=== PATIENT | male | born 1970 | race Caucasian/White ===

== ENCOUNTER → 2019-12-01 | Day surgery (SDC) | payer OTHER ==
[~2019-12-01] MED LIST: DICLOFENAC SODI75 MG PO; FENTANYL CITRATE/PF 100MCG/2 ML INJ ONE; HYDROCODONE PO; MIDAZOLAM HCL 2 MG/2 ML VIAL ONE; OR PHACO EYE KIT ONE; PREOP PHACO EYE KIT ONE
[2019-12-01 14:42] VITALS: BP 87/65
--- NOTE | 2019-12-01 19:25 | Operative Report ---
DATE OF PROCEDURE: 12/01/2019 SURGEON: Zeeshan Solano MD PREOPERATIVE DIAGNOSIS: Dense white cataract, right eye. POSTOPERATIVE DIAGNOSIS: Dense white cataract, right eye. PROCEDURE: Complicated phacoemulsification with posterior chamber intraocular lens. ANESTHESIA: MAC. COMPLICATIONS: None. LENS: Jhonny SN60WF 21.5 diopter lens. DESCRIPTION OF PROCEDURE: The patient was taken to the operating room. The patient had tetracaine 0.5% drops placed in the eye. The patient's eye was prepped and draped in the usual sterile ophthalmic way. A lid speculum was placed in the eye. A side-port incision was made. A 0.2 mL of 1% lidocaine preservative-free was injected in the anterior chamber. An air bubble was placed in the anterior chamber and trypan blue dye was used to stain the capsule. BSS solution was used to irrigate this out. Viscoelastic was placed in the anterior chamber and a keratome was used to make a temporal clear corneal incision. A cystotome was used along the Utrata forceps to create an anterior capsulorrhexis. The anterior capsule was very dense and at one point after about 80% of rhexis was then able to continue to tear the anterior capsule, I had to convert to a [employer] technique. Hydrodissection was then performed. The phacoemulsification probe was placed in the eye. The nucleus was phacoemulsified using the divide and conquer technique. Irrigation/aspiration handpiece was used to remove any residual cortical material. Viscoelastic was placed in the capsular bag. An Jhonny SN60WF lens placed in the bag without any complications. Irrigation/aspiration handpiece was used to remove any residual viscoelastic material from the eye. Miostat was injected in the anterior chamber and the wound was checked to make sure there was no evidence of leakage. Two drops of Vigamox were placed over the eye. Once this done, the patient had Maxitrol ointment, patch and Norton shield were placed in the eye. The patient tolerated the procedure well, was taken to recovery room in good condition. The patient will be seen by me tomorrow . Zeeshan Solano MD SES/MODL /[id number]
== END | disposition home or self-care (01) ==
LOC: OR 11:23 → EDSEX 18:00
PROVIDERS: ATTEND Ophthalmology
DX: H25.11 Age-related nuclear cataract, right eye (principal); M51.26 Other intervertebral disc displacement, lumbar region; H91.90 Unspecified hearing loss, unspecified ear; Z01.812 Encounter for preprocedural laboratory examination; Z11.59 Encounter for screening for other viral diseases; Z87.891 Personal history of nicotine dependence
CPT/HCPCS: 66982; J2250; J3010; U0002; V2632

== ENCOUNTER → 2019-12-15 | Day surgery (SDC) | payer OTHER ==
[~2019-12-15] VITALS: Ht 175.3 cm; Wt 67.1 kg
[2019-12-15 14:30] VITALS: BP 101/68
== END | disposition home or self-care (01) ==
LOC: OR 10:50
PROVIDERS: ATTEND Ophthalmology
DX: H25.12 Age-related nuclear cataract, left eye (principal); M54.9 Dorsalgia, unspecified; Z01.812 Encounter for preprocedural laboratory examination; Z11.59 Encounter for screening for other viral diseases; Z87.891 Personal history of nicotine dependence
CPT/HCPCS: 66984; J2250; J3010; U0002; V2632

== ENCOUNTER 2020-03-07 13:27 | Inpatient (IN) | payer OTHER ==
[~2020-03-07] VITALS: Ht 175.3 cm; Wt 70.8 kg
[~2020-03-07 13:27] MED LIST changes: -FENTANYL CITRATE/PF 100MCG/2 ML INJ ONE; -MIDAZOLAM HCL 2 MG/2 ML VIAL ONE; -OR PHACO EYE KIT ONE; -PREOP PHACO EYE KIT ONE
[2020-03-07 14:31] LABS: BASOPHILS # (AUTO) 0.1 (0.0-0.1); BASOPHILS % 0.5 % (0.0-1.0); EOSINOPHILS % 0.1 % (0.0-6.0); HEMATOCRIT 39.4 % (38.2-49.6); HEMOGLOBIN 13.1 g/dL (14.0-18.0); LYMPHOCYTES # (AUTO) 2.1 (1.0-3.2); LYMPHOCYTES % 21.1 % (18.0-39.1); MEAN CORPUSCULAR HEMOGLOBIN 32.7 pg (28-32); MEAN CORPUSCULAR HGB CONC 33.2 g/dL (31-35); MEAN CORPUSCULAR VOLUME 98.3 fL (81-99); MONOCYTES # (AUTO) 0.8 (0.2-0.8); MONOCYTES % 7.4 % (4.4-11.3); NEUTROPHILS # (AUTO) 7.1 (2.1-6.9); NEUTROPHILS % 70.6 % (38.7-80.0); PLATELET COUNT 253 x10e3/uL (140-360); RED BLOOD COUNT 4.01 x10e6/uL (4.3-5.7); RED CELL DISTRIBUTION WIDTH 11.9 % (11.7-14.4)
[2020-03-07 14:47] LABS: ALANINE AMINOTRANSFERASE 30 IU/L (0-55); ALBUMIN 3.6 g/dL (3.5-5.0); ALKALINE PHOSPHATASE 66 IU/L (40-150); BLOOD UREA NITROGEN 10 mg/dL (7-26); BUN/CREATININE RATIO 12 (6-25); CALCIUM 8.8 mg/dL (8.4-10.2); CARBON DIOXIDE 26 mmol/L (22-29); CHLORIDE 105 mmol/L (98-107); CREATININE, SERUM 0.85 mg/dL (0.72-1.25); EST GLOMERULAR FILTRATION RATE > 60 ML/MIN (60-); GLUCOSE 112 mg/dL (74-118); SODIUM 138 mmol/L (136-145)
[2020-03-07] MEDS ORDERED: HEPARIN SOD (PORCINE) 5,000 UNIT/ML VIAL IV ONE (15:00)
[2020-03-07] MEDS ORDERED: ASPIRIN 81 MG CHEW TAB PO ONE (15:00)
[2020-03-07] MEDS ORDERED: HEPARIN 25,000 UNIT 900 UNIT in DEXTROSE 5% 250ML 250 ML IV SCH (15:00)
[2020-03-07] MEDS ORDERED: MORPHINE SULFATE INJ 2 MG/ML SYR IV PRN (15:15)
[2020-03-07 15:16] LABS: INR 0.92; PROTHROMBIN TIME 12.9 seconds (11.9-14.5)
[2020-03-07] MEDS ORDERED: MORPHINE SULFATE INJ 4 MG/ML INJ 1ML ONE (15:28)
[2020-03-07] MEDS: ONDANSETRON HCL INJ 2MG/ML 2ML 2 MG/ML VIAL IV PRN ×2 (15:28→19:39)
[2020-03-07] MEDS: MORPHINE SULFATE INJ 4 MG/ML INJ 1ML IV PRN ×2 (15:28→19:40)
[2020-03-07] MEDS ORDERED: HEPARIN SOD (PORCINE) 1000 UNIT/ML SDV ONE (15:29)
[2020-03-07] MEDS ORDERED: HEPARIN SOD (PORCINE) 5,000 UNIT/ML VIAL ONE (15:29)
[2020-03-07] MEDS ORDERED: HEPARIN 25,000 UNIT DRIP IV ONE (15:30)
[2020-03-07] MEDS ORDERED: ULTRAM 50MG50 MG (15:54)
[2020-03-07] MEDS ORDERED: HYDROCODON-ACE1 EAC9 (15:54)
[2020-03-07] MEDS ORDERED: GABAPENTIN300 MG (15:54)
[2020-03-07] MEDS ORDERED: TRAMADOL HCL 50 MG TAB PO PRN (16:45)
[2020-03-07 16:46] VITALS: BP 149/99
[2020-03-07 17:00] VITALS: BP 149/99
[2020-03-07] MEDS ORDERED: NON-FORMULARY MEDICATION (Diclofenac Sodium 75 MG) PO SCH (17:00)
[2020-03-07] MEDS: HYDROCODONE/APAP 10MG-325MG TAB PO PRN (17:13)
[2020-03-07] MEDS: NITROGLYCERIN 0.4 MG SUBL SL PRN ×2 (17:13→18:24)
[2020-03-07] MEDS ORDERED: HYDRALAZINE HCL 20 MG/ML VIAL IV PRN (19:00)
[2020-03-07] MEDS ORDERED: ACETAMINOPHEN 325 MG TAB PO PRN (19:00)
[2020-03-07] MEDS ORDERED: POLYETHYLENE GLYCOL 3350 17 GM PACK PO PRN (19:00)
[2020-03-07] MEDS ORDERED: CLOPIDOGREL BISULFATE 75 MG TAB PO ONE (19:45)
[2020-03-07 20:00] VITALS: BP 131/89
[2020-03-07] MEDS: NITROGLYCERIN 0.4 MG PATCH TOP SCH (20:15)
[2020-03-07] MEDS: METOPROLOL SUCCINATE 25 MG TAB XL PO SCH (20:23)
[2020-03-07 20:57] VITALS: BP 131/89
[2020-03-07] MEDS ORDERED: TEMAZEPAM 15 MG CAP PO PRN (21:00)
[2020-03-07] MEDS: SODIUM CHLORIDE 0.9% 1000ML 1,000 ML IV SCH (22:17)
[2020-03-07] MEDS: IBUPROFEN 600 MG TAB PO SCH (22:17)
[2020-03-08] VITALS (8 sets, daily range): BP systolic 85–120; BP diastolic 59–76
[2020-03-08] MEDS: ONDANSETRON HCL INJ 2MG/ML 2ML 2 MG/ML VIAL IV PRN ×2 (00:45→05:38)
[2020-03-08] MEDS: MORPHINE SULFATE INJ 4 MG/ML INJ 1ML IV PRN ×2 (00:45→05:38)
[2020-03-08 02:27] LABS: CLARITY,URINE CLEAR (CLEAR); COLOR,URINE YELLOW (YELLOW); LEUKOCYTE ESTERASE ,URINE NEGATIVE (NEGATIVE); NITRITE,URINE NEGATIVE (NEGATIVE)
[2020-03-08 02:28] LABS: KETONES,URINE NEGATIVE (NEGATIVE); PROTEIN,URINE DIPSTICK NEGATIVE (NEGATIVE); URINE UROBILINOGEN 0.2 mg/dL (0.2 - 1)
[2020-03-08 02:40] LABS: CREATINE KINASE MB 147.4 ng/mL (0-5.0)
[2020-03-08 02:49] LABS: BACTERIA,URINE RARE /HPF; EPITHELIAL CELLS,URINE RARE /LPF; RBC,URINE 0-5 /HPF (0-5); WBC,URINE (MAN) 0-5 /HPF (0-5)
[2020-03-08 02:58] LABS: CHOL/HDL RATIO 5.6 (3.9-4.7); MAGNESIUM 1.8 MG/DL (1.3-2.1); PHOSPHORUS 3.8 MG/DL (2.3-4.7)
[2020-03-08 03:19] LABS: THYROID STIMULATING HORMONE 1.172 uIU/mL (0.350-4.940)
[2020-03-08 05:27] LABS: BASOPHILS # (AUTO) 0.1 (0.0-0.1); BASOPHILS % 0.5 % (0.0-1.0); EOSINOPHILS # (AUTO) 0.2 (0.0-0.4); EOSINOPHILS % 1.3 % (0.0-6.0); HEMATOCRIT 36.7 % (38.2-49.6); HEMOGLOBIN 11.7 g/dL (14.0-18.0); LYMPHOCYTES # (AUTO) 4.4 (1.0-3.2); LYMPHOCYTES % 39.1 % (18.0-39.1); MEAN CORPUSCULAR HEMOGLOBIN 32.1 pg (28-32); MEAN CORPUSCULAR HGB CONC 31.9 g/dL (31-35); MEAN CORPUSCULAR VOLUME 100.8 fL (81-99); MONOCYTES % 9.1 % (4.4-11.3); NEUTROPHILS # (AUTO) 5.5 (2.1-6.9); NEUTROPHILS % 49.6 % (38.7-80.0); PLATELET COUNT 220 x10e3/uL (140-360); RED BLOOD COUNT 3.64 x10e6/uL (4.3-5.7); RED CELL DISTRIBUTION WIDTH 11.9 % (11.7-14.4)
[2020-03-08 05:32] LABS: INR 0.98; PROTHROMBIN TIME 13.6 seconds (11.9-14.5)
[2020-03-08 05:33] LABS: PARTIAL THROMBOPLASTIN TIME 55.1 seconds (23.8-35.5)
[2020-03-08 05:48] LABS: ANION GAP 13.8 mmol/L (8-16); BLOOD UREA NITROGEN 10 mg/dL (7-26); BUN/CREATININE RATIO 11 (6-25); CALCIUM 8.5 mg/dL (8.4-10.2); CARBON DIOXIDE 26 mmol/L (22-29); CHLORIDE 104 mmol/L (98-107); CREATININE, SERUM 0.93 mg/dL (0.72-1.25); EST GLOMERULAR FILTRATION RATE > 60 ML/MIN (60-); GLUCOSE 102 mg/dL (74-118); POTASSIUM 3.8 mmol/L (3.5-5.1); SODIUM 140 mmol/L (136-145)
[2020-03-08 07:34] LABS: CREATINE KINASE MB 136.1 ng/mL (0-5.0)
[2020-03-08] MEDS: SODIUM CHLORIDE 0.9% 1000ML 1,000 ML IV SCH ×3 (07:45→20:23)
[2020-03-08] MEDS ORDERED: HEPARIN SOD (PORCINE) 1000 UNIT/ML 30ML ONE (07:59)
[2020-03-08] MEDS ORDERED: FENTANYL CITRATE/PF 100MCG/2 ML INJ ONE (08:00)
[2020-03-08] MEDS ORDERED: MIDAZOLAM HCL 2 MG/2 ML VIAL ONE ×2 (08:00→09:05)
[2020-03-08] MEDS ORDERED: LIDOCAINE HCL 2% LOCAL 20 ML VIAL ONE (08:00)
[2020-03-08] MEDS ORDERED: IOPAMIDOL 370 MG/ML 200 ML INFUS..BTL INJ ONE (08:03)
[2020-03-08] MEDS ORDERED: HEPARIN SOD/SOD CHLORIDE 2,000 ML ONE (08:03)
[2020-03-08] MEDS ORDERED: SODIUM CHLORIDE 0.9% 1000ML 1,000 ML ONE (08:03)
[2020-03-08] MEDS ORDERED: NITROGLYCERIN/D5W 200 MCG/ML 250 ML ONE (08:03)
[2020-03-08] MEDS: NITROGLYCERIN 0.4 MG SUBL SL PRN (08:25)
[2020-03-08] MEDS: CLOPIDOGREL BISULFATE 75 MG TAB PO SCH (09:00)
[2020-03-08] MEDS: ASPIRIN 81 MG CHEW TAB PO SCH (09:00)
[2020-03-08] MEDS ORDERED: CLOPIDOGREL BISULFATE 75 MG TAB ONE (09:12)
[2020-03-08] MEDS ORDERED: ASPIRIN 325 MG TAB ONE (09:13)
[2020-03-08] MEDS: FAMOTIDINE 20 MG TAB PO SCH ×2 (10:41→16:09)
[2020-03-08] MEDS: NITROGLYCERIN 0.4 MG PATCH TOP SCH (10:42)
[2020-03-08] MEDS: GABAPENTIN 300 MG CAP PO SCH (10:42)
[2020-03-08] MEDS: ATORVASTATIN 40 MG TAB PO SCH (10:42)
[2020-03-08] MEDS: METOPROLOL SUCCINATE 25 MG TAB XL PO SCH ×2 (10:42→19:45)
[2020-03-08] MEDS: IBUPROFEN 600 MG TAB PO SCH ×3 (10:42→20:23)
[2020-03-08] MEDS: DOCUSATE SODIUM 100 MG CAP PO SCH ×2 (10:42→16:09)
[2020-03-08 11:53] LABS: CREATINE KINASE MB 83.2 ng/mL (0-5.0)
[2020-03-09] VITALS: BP 95/64
[2020-03-09 04:00] VITALS: BP 98/69
[2020-03-09] MEDS: HYDROCODONE/APAP 10MG-325MG TAB PO PRN ×2 (04:15→09:36)
[2020-03-09 06:13] LABS: BASOPHILS # (AUTO) 0.1 (0.0-0.1); BASOPHILS % 0.7 % (0.0-1.0); EOSINOPHILS # (AUTO) 0.1 (0.0-0.4); EOSINOPHILS % 1.4 % (0.0-6.0); HEMATOCRIT 33.9 % (38.2-49.6); HEMOGLOBIN 10.9 g/dL (14.0-18.0); LYMPHOCYTES # (AUTO) 2.8 (1.0-3.2); MEAN CORPUSCULAR HEMOGLOBIN 32.9 pg (28-32); MEAN CORPUSCULAR HGB CONC 32.2 g/dL (31-35); MEAN CORPUSCULAR VOLUME 102.4 fL (81-99); MONOCYTES # (AUTO) 0.8 (0.2-0.8); MONOCYTES % 8.7 % (4.4-11.3); PLATELET COUNT 194 x10e3/uL (140-360); RED BLOOD COUNT 3.31 x10e6/uL (4.3-5.7)
[2020-03-09 06:39] LABS: ANION GAP 10.8 mmol/L (8-16); BLOOD UREA NITROGEN 13 mg/dL (7-26); BUN/CREATININE RATIO 14 (6-25); CARBON DIOXIDE 24 mmol/L (22-29); CHLORIDE 111 mmol/L (98-107); CREATININE, SERUM 0.96 mg/dL (0.72-1.25); EST GLOMERULAR FILTRATION RATE > 60 ML/MIN (60-); GLUCOSE 103 mg/dL (74-118); POTASSIUM 3.8 mmol/L (3.5-5.1); SODIUM 142 mmol/L (136-145)
[2020-03-09] MEDS: FAMOTIDINE 20 MG TAB PO SCH (07:30)
[2020-03-09] MEDS: METOPROLOL SUCCINATE 25 MG TAB XL PO SCH (07:45)
[2020-03-09 08:27] VITALS: BP 109/75
[2020-03-09] MEDS: ASPIRIN 81 MG CHEW TAB PO SCH (08:45)
[2020-03-09] MEDS: GABAPENTIN 300 MG CAP PO SCH (08:45)
[2020-03-09] MEDS: IBUPROFEN 600 MG TAB PO SCH (08:45)
[2020-03-09] MEDS: ATORVASTATIN 40 MG TAB PO SCH (08:45)
[2020-03-09] MEDS: DOCUSATE SODIUM 100 MG CAP PO SCH (08:45)
[2020-03-09] MEDS: CLOPIDOGREL BISULFATE 75 MG TAB PO SCH (08:46)
[2020-03-09 08:50] VITALS: BP 109/75
[2020-03-09] MEDS: SODIUM CHLORIDE 0.9% 1000ML 1,000 ML IV SCH (11:15)
[2020-03-09] MEDS ORDERED: TOPROL XL25 MG PO (11:47)
[2020-03-09] MEDS ORDERED: PLAVIX75 MG PO (11:47)
[2020-03-09] MEDS ORDERED: FAMOTIDINE20 MG PO (11:47)
[2020-03-09] MEDS ORDERED: ASPIRIN CHEW81 MG PO (11:47)
[2020-03-09 12:09] VITALS: BP 114/75
[2020-03-09] MEDS ORDERED: ONDANSETRON HCL 4 MG ORAL DISINTEGRATING TAB PO PRN (13:15)
== END 2020-03-09 13:08 | disposition home or self-care (01) | DRG 247 ==
LOC: ER 14:15 → ERHOLD 15:03 → MED/SURG2 16:28
PROVIDERS: ADMIT Internal Medicine; ATTEND Internal Medicine
PROC: 027136Z Dilation of Coronary Artery, Two Arteries with Three Drug-eluting Intraluminal Devices, Percutaneous Approach (ICD-10-PCS; principal; 2020-03-08)
PROC: 02C03ZZ Extirpation of Matter from Coronary Artery, One Artery, Percutaneous Approach (ICD-10-PCS; 2020-03-08)
PROC: 4A023N7 Measurement of Cardiac Sampling and Pressure, Left Heart, Percutaneous Approach (ICD-10-PCS; 2020-03-08)
PROC: B2111ZZ Fluoroscopy of Multiple Coronary Arteries using Low Osmolar Contrast (ICD-10-PCS; 2020-03-08)
PROC: B2151ZZ Fluoroscopy of Left Heart using Low Osmolar Contrast (ICD-10-PCS; 2020-03-08)
DX: I21.4 Non-ST elevation (NSTEMI) myocardial infarction (principal); R11.2 Nausea with vomiting, unspecified; Z20.822 Contact with and (suspected) exposure to COVID-19; I10 Essential (primary) hypertension; M54.5 Low back pain; G89.29 Other chronic pain; Z96.641 Presence of right artificial hip joint; F17.210 Nicotine dependence, cigarettes, uncomplicated; R74.01 Elevation of levels of liver transaminase levels; M51.26 Other intervertebral disc displacement, lumbar region; I25.119 Atherosclerotic heart disease of native coronary artery with unspecified angina pectoris
CPT/HCPCS: 36415; 71045; 71046; 80048; 80053; 80061; 81001; 82550; 82553; 83036; 83690; 83735; 84100; 84443; 84484; 85025; 85610; 85730; 92928; 92973; 93005; 93306; 93458; 96361; 99152; 99153; C1725; C1757; C1760; C1769; C1874; C1876; J1644; J2001; J2250; J2270; J2405; J3010; J7030; Q9967; U0002

== ENCOUNTER 2020-03-20 04:27 | Inpatient (IN) | payer OTHER ==
[~2020-03-20] VITALS: Ht 175.3 cm; Wt 70.8 kg
[~2020-03-20 04:27] MED LIST changes: +ASPIRIN CHEW81 MG PO; +FAMOTIDINE20 MG PO; +GABAPENTIN300 MG PO; +HYDROCODON-ACE1 EAC9; +PLAVIX75 MG PO; +TOPROL XL25 MG PO; +ULTRAM 50MG50 MG PO
[2020-03-20] MEDS ORDERED: ONDANSETRON HCL INJ 2MG/ML 2ML 2 MG/ML VIAL IV STA (05:17)
[2020-03-20] MEDS ORDERED: MORPHINE SULFATE INJ 4 MG/ML INJ 1ML IV STA (05:17)
[2020-03-20] MEDS ORDERED: ASPIRIN 81 MG CHEW TAB PO STA (05:17)
[2020-03-20] MEDS ORDERED: CLOPIDOGREL BISULFATE 75 MG TAB PO ONE (05:30)
[2020-03-20 05:37] LABS: BASOPHILS # (AUTO) 0.1 (0.0-0.1); EOSINOPHILS # (AUTO) 0.2 (0.0-0.4); EOSINOPHILS % 2.7 % (0.0-6.0); HEMATOCRIT 37.5 % (38.2-49.6); HEMOGLOBIN 12.4 g/dL (14.0-18.0); LYMPHOCYTES # (AUTO) 3.2 (1.0-3.2); LYMPHOCYTES % 36.1 % (18.0-39.1); MEAN CORPUSCULAR HEMOGLOBIN 32.5 pg (28-32); MEAN CORPUSCULAR HGB CONC 33.1 g/dL (31-35); MEAN CORPUSCULAR VOLUME 98.2 fL (81-99); MONOCYTES # (AUTO) 0.7 (0.2-0.8); NEUTROPHILS # (AUTO) 4.5 (2.1-6.9); NEUTROPHILS % 51.7 % (38.7-80.0); PLATELET COUNT 324 x10e3/uL (140-360); RED BLOOD COUNT 3.82 x10e6/uL (4.3-5.7); RED CELL DISTRIBUTION WIDTH 11.9 % (11.7-14.4)
[2020-03-20 05:58] LABS: ALANINE AMINOTRANSFERASE 26 IU/L (0-55); ALBUMIN 3.7 g/dL (3.5-5.0); ALBUMIN/GLOBULIN RATIO 0.9 (0.8-2.0); ALKALINE PHOSPHATASE 74 IU/L (40-150); ANION GAP 14.3 mmol/L (8-16); BLOOD UREA NITROGEN 14 mg/dL (7-26); BUN/CREATININE RATIO 14 (6-25); CALCIUM 9.3 mg/dL (8.4-10.2); CARBON DIOXIDE 24 mmol/L (22-29); CHLORIDE 103 mmol/L (98-107); CREATINE KINASE 77 IU/L (30-200); CREATININE, SERUM 1.01 mg/dL (0.72-1.25); EST GLOMERULAR FILTRATION RATE > 60 ML/MIN (60-); GLUCOSE 101 mg/dL (74-118); POTASSIUM 4.3 mmol/L (3.5-5.1); SODIUM 137 mmol/L (136-145)
[2020-03-20 06:08] LABS: INR 0.94; PARTIAL THROMBOPLASTIN TIME 28.4 seconds (23.8-35.5); PROTHROMBIN TIME 13.1 seconds (11.9-14.5)
[2020-03-20] MEDS ORDERED: HYDROCODONE/APAP 10MG-325MG TAB PO ONE ×2 (06:15)
[2020-03-20] MEDS ORDERED: MORPHINE SULFATE INJ 2 MG/ML SYR IV PRN (07:00)
[2020-03-20] MEDS ORDERED: ONDANSETRON HCL INJ 2MG/ML 2ML 2 MG/ML VIAL IV PRN (07:00)
[2020-03-20] MEDS ORDERED: NITROGLYCERIN 0.4 MG SUBL SL PRN (07:00)
[2020-03-20] MEDS ORDERED: ACETAMINOPHEN 325 MG TAB PO PRN (09:45)
[2020-03-20] MEDS ORDERED: METOPROLOL TARTRATE INJ 1 MG/ML VIAL IV PRN (09:45)
[2020-03-20] MEDS ORDERED: POLYETHYLENE GLYCOL 3350 17 GM PACK PO PRN (09:45)
[2020-03-20] MEDS ORDERED: HEPARIN 25,000 UNIT 800 UNIT in DEXTROSE 5% 250ML 250 ML IV SCH (11:30)
[2020-03-20] MEDS ORDERED: HEPARIN SOD (PORCINE) 5,000 UNIT/ML VIAL IV NR (11:30)
[2020-03-20] MEDS: ASPIRIN 81 MG ENTERIC COATED PO SCH (12:38)
[2020-03-20] MEDS: DOCUSATE SODIUM 100 MG CAP PO SCH (12:38)
[2020-03-20] MEDS: FAMOTIDINE 20 MG/2 ML VIAL IV SCH ×2 (12:38→19:49)
[2020-03-20] MEDS: METOPROLOL TARTRATE 25 MG TAB PO SCH ×2 (12:38→19:26)
[2020-03-20] MEDS: CLOPIDOGREL BISULFATE 75 MG TAB PO SCH (12:44)
[2020-03-20 19:48] LABS: CREATINE KINASE MB 1.6 ng/mL (0-5.0)
[2020-03-20] MEDS: TRAMADOL HCL 50 MG TAB PO PRN (20:15)
[2020-03-20] MEDS ORDERED: TEMAZEPAM 7.5 MG CAP PO PRN (21:00)
[2020-03-21] VITALS (14 sets, daily range): BP systolic 89–113; BP diastolic 58–73
[2020-03-21 02:57] LABS: CREATINE KINASE MB 1.5 ng/mL (0-5.0)
[2020-03-21 05:14] LABS: BASOPHILS # (AUTO) 0.1 (0.0-0.1); BASOPHILS % 1.1 % (0.0-1.0); EOSINOPHILS # (AUTO) 0.3 (0.0-0.4); EOSINOPHILS % 3.7 % (0.0-6.0); HEMATOCRIT 36.1 % (38.2-49.6); HEMOGLOBIN 11.8 g/dL (14.0-18.0); LYMPHOCYTES # (AUTO) 3.7 (1.0-3.2); LYMPHOCYTES % 51.1 % (18.0-39.1); MEAN CORPUSCULAR HEMOGLOBIN 32.1 pg (28-32); MEAN CORPUSCULAR HGB CONC 32.7 g/dL (31-35); MEAN CORPUSCULAR VOLUME 98.1 fL (81-99); MONOCYTES # (AUTO) 0.6 (0.2-0.8); MONOCYTES % 7.7 % (4.4-11.3); NEUTROPHILS # (AUTO) 2.6 (2.1-6.9); PLATELET COUNT 248 x10e3/uL (140-360); RED BLOOD COUNT 3.68 x10e6/uL (4.3-5.7); RED CELL DISTRIBUTION WIDTH 11.9 % (11.7-14.4)
[2020-03-21 05:43] LABS: ALANINE AMINOTRANSFERASE 23 IU/L (0-55); ALBUMIN/GLOBULIN RATIO 0.9 (0.8-2.0); ALKALINE PHOSPHATASE 61 IU/L (40-150); ANION GAP 13.9 mmol/L (8-16); BLOOD UREA NITROGEN 12 mg/dL (7-26); BUN/CREATININE RATIO 14 (6-25); CARBON DIOXIDE 19 mmol/L (22-29); CHLORIDE 109 mmol/L (98-107); CREATININE, SERUM 0.83 mg/dL (0.72-1.25); EST GLOMERULAR FILTRATION RATE > 60 ML/MIN (60-); GLUCOSE 95 mg/dL (74-118); POTASSIUM 3.9 mmol/L (3.5-5.1); SODIUM 138 mmol/L (136-145)
[2020-03-21] MEDS: METOPROLOL TARTRATE 25 MG TAB PO SCH (05:59)
[2020-03-21] MEDS: FAMOTIDINE 20 MG/2 ML VIAL IV SCH (06:04)
[2020-03-21] MEDS: GABAPENTIN 300 MG CAP PO SCH ×2 (08:09→16:15)
[2020-03-21] MEDS: ASPIRIN 81 MG ENTERIC COATED PO SCH (08:09)
[2020-03-21] MEDS: CLOPIDOGREL BISULFATE 75 MG TAB PO SCH (08:10)
[2020-03-21] MEDS: DOCUSATE SODIUM 100 MG CAP PO SCH ×2 (08:10→16:43)
[2020-03-21] MEDS: TRAMADOL HCL 50 MG TAB PO PRN (08:10)
[2020-03-21] MEDS ORDERED: LIDOCAINE HCL 2% LOCAL 20 ML VIAL ONE (09:20)
[2020-03-21] MEDS ORDERED: HEPARIN SOD/SOD CHLORIDE 2,000 ML ONE (09:20)
[2020-03-21] MEDS ORDERED: SODIUM CHLORIDE 0.9% 1000ML 1,000 ML ONE (09:20)
[2020-03-21] MEDS ORDERED: IOPAMIDOL 370 MG/ML 200 ML INFUS..BTL INJ ONE (09:20)
[2020-03-21] MEDS ORDERED: NITROGLYCERIN/D5W 200 MCG/ML 0 ML ONE (09:20)
[2020-03-21] MEDS ORDERED: HEPARIN SOD (PORCINE) 1000 UNIT/ML 30ML ONE (09:20)
[2020-03-21] MEDS ORDERED: MIDAZOLAM HCL 2 MG/2 ML VIAL ONE (09:21)
[2020-03-21] MEDS ORDERED: FENTANYL CITRATE/PF 100MCG/2 ML INJ ONE (09:21)
[2020-03-21] MEDS ORDERED: ATORVASTATIN 20 MG TAB PO SCH (09:45)
[2020-03-21] MEDS ORDERED: SODIUM CHLORIDE 0.9% 1000ML 1,000 ML IV SCH ×2 (10:00)
[2020-03-21] MEDS ORDERED: ATORVASTATIN 40 MG TAB PO SCH ×2 (10:00→21:00)
[2020-03-21] MEDS ORDERED: TEMAZEPAM 15 MG CAP PO PRN (13:15)
[2020-03-21] MEDS ORDERED: Atorvastatin PO (14:42)
[2020-03-21] MEDS ORDERED: NITROSTAT0.4 MG SL (14:42)
== END 2020-03-21 17:48 | disposition home or self-care (01) | DRG 282 ==
LOC: ER 05:19 → ERHOLD 06:56 → MED/SURG2 23:41
PROVIDERS: ADMIT Internal Medicine; ATTEND Internal Medicine
PROC: 4A023N7 Measurement of Cardiac Sampling and Pressure, Left Heart, Percutaneous Approach (ICD-10-PCS; principal; 2020-03-21)
PROC: B2111ZZ Fluoroscopy of Multiple Coronary Arteries using Low Osmolar Contrast (ICD-10-PCS; 2020-03-21)
PROC: B2151ZZ Fluoroscopy of Left Heart using Low Osmolar Contrast (ICD-10-PCS; 2020-03-21)
DX: I25.110 Atherosclerotic heart disease of native coronary artery with unstable angina pectoris (principal); I21.9 Acute myocardial infarction, unspecified; E78.5 Hyperlipidemia, unspecified; G47.00 Insomnia, unspecified; M54.9 Dorsalgia, unspecified; I10 Essential (primary) hypertension; Z96.641 Presence of right artificial hip joint; Z87.891 Personal history of nicotine dependence; Z95.5 Presence of coronary angioplasty implant and graft; Z20.822 Contact with and (suspected) exposure to COVID-19
CPT/HCPCS: 36415; 71045; 80053; 82550; 82553; 83735; 83880; 84100; 84484; 85025; 85610; 85730; 93005; 93458; 99152; 99153; 99284; C1760; C1769; C1887; J1644; J2001; J2250; J2270; J2405; J3010; J7030; Q9967; U0002